=== PATIENT | female | born 1940 | race Caucasian/White ===

== ENCOUNTER 2017-06-29 17:29 | Emergency (ER) | payer OTHER, MEDICAID ==
[~2017-06-29] VITALS: Ht 154.9 cm; Wt 90.7 kg
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
[2017-06-29] MEDS ORDERED: oxyCODONE/APAP (5/325 MG) 1 UDTAB TABLET PO ONE (18:00)
[2017-06-29 18:04] LABS: BASOPHILS # (AUTO) 0.5 /CMM (0.0-0.2); BASOPHILS % (AUTO) 3.1 % (0.0-2.0); EOSINOPHILS # (AUTO) 0.2 /CMM (0.0-0.7); EOSINOPHILS % (AUTO) 0.9 % (0.0-6.0); HEMATOCRIT 42 % (33-45); LYMPHOCYTES # (AUTO) 1.8 /CMM (0.8-4.8); LYMPHOCYTES % (AUTO) 10.4 % (20.0-44.0); MEAN CORPUSCULAR HEMOGLOBIN 30 PG (26.0-33.0); MEAN CORPUSCULAR HGB CONC 34 g/dl (31.0-36.0); MEAN CORPUSCULAR VOLUME 89 fL (82-100); MONOCYTES # (AUTO) 1.2 /CMM (0.1-1.30); NEUTROPHILS # (AUTO) 13.4 /CMM (1.8-8.9); NEUTROPHILS % (AUTO) 78.6 % (43.0-81.0); PLATELET COUNT (AUTO) 237 /CMM (150-450); RDW COEFFICIENT OF VARIATION 13.4 (11.5-15.0); RED BLOOD CELL COUNT(AUTO) 4.67 MIL/uL (4.0-5.2); WHITE BLOOD COUNT (AUTO) 17.1 K/uL (4.3-11.0)
[2017-06-29] MEDS ORDERED: oxyCODONE/APAP (5/325 MG) 1 UDTAB TABLET ONE (18:05)
[2017-06-29 18:14] LABS: CALCIUM, SERUM 9.6 mg/dL (8.5-10.1); CARBON DIOXIDE 31 mmol/L (21-32); CHLORIDE 100 mmol/L (98-107); GLUCOSE 113 mg/dL (74-106); POTASSIUM 5.1 mmol/L (3.5-5.1); SODIUM SERUM 135 mmol/L (136-145); UREA NITROGEN, BLOOD 29 mg/dL (7-18)
[2017-06-29 18:17] LABS: INR 0.9 (0.87-1.13); PROTHROMBIN TIME 9.4 SECS (9.5-12.7)
[2017-06-29 18:20] LABS: ALANINE AMINOTRANSFERASE 28 U/L (12-78); ALBUMIN 4.1 g/dL (3.4-5.0); ALKALINE PHOSPHATASE 127 U/L (46-116); ASPARTATE AMINOTRANSFERASE 36 U/L (15-37); BILIRUBIN,TOTAL 0.5 mg/dL (0.2-1.0)
--- NOTE | 2017-06-29 18:32 | NUR ---
PT PLACED IN C-COLLAR PER Evelyn TSE FREIGHT TRAFFIC CONSULTANT AND PT TO HAVE CT SPINE. PT'S SON IS AT THE BEDSIDE.
[2017-06-29] MEDS ORDERED: IV NS 0.9% 1,000 ML BAG IV ONE (19:00)
--- NOTE | 2017-06-29 19:15 | NUR ---
PT RETURNED FROM CT.
--- NOTE | 2017-06-29 19:16 | NUR ---
REPORT GIVEN TO VALDEMAR BALLARD
[2017-06-29 19:20] LABS: APPEARANCE,URINE Clear (CLEAR); BILIRUBIN,URINE Negative (NEGATIVE); BLOOD, URINE Trace-lysed Ery/uL (NEGATIVE); COLOR,URINE Yellow (YELLOW); KETONES,URINE Negative (NEGATIVE); LEUKOCYTE ESTERASE ,URINE Negative (NEGATIVE); NITRITE, URINE Negative (NEGATIVE); PROTEIN,URINE Negative (NEGATIVE); UGLUCOSE Negative (NEGATIVE); UROBILINOGEN,URINE 0.2 EU/dL (0.2)
[2017-06-29 19:34] LABS: BACTERIA,URINE Rare /HPF (None Seen); SQUAMOUS EPITHELIAL CELL,UR Few /HPF (None Seen); WBC,URINE NONE SEEN /HPF (0-3)
[2017-06-29] MEDS ORDERED: IBUPROFEN 400 MG TABLET ONE (20:29)
[2017-06-29] MEDS ORDERED: IBUPROFEN 400 MG TABLET PO ONE (20:30)
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
--- NOTE | 2017-06-29 20:34 | NUR ---
IV removed. Catheter intact and site benign. Pressure and 4x4 applied to site. No bleeding noted.
--- NOTE | 2017-06-29 20:34 | NUR ---
Patient discharged to home in stable condition. Written and verbal after care instructions given. Patient verbalizes understanding of instruction.
--- NOTE | 2017-06-29 20:35 | NUR ---
dc home with her son and prescription pain medication
[2017-06-29 20:36] VITALS: BP 145/75
== END 2017-06-29 20:36 | disposition home or self-care (01) ==
LOC: ER 17:31
DX: S20.212A Contusion of left front wall of thorax, initial encounter (principal); S20.211A Contusion of right front wall of thorax, initial encounter; S70.12XA Contusion of left thigh, initial encounter; S70.11XA Contusion of right thigh, initial encounter; S19.9XXA Unspecified injury of neck, initial encounter; I10 Essential (primary) hypertension; R79.89 Other specified abnormal findings of blood chemistry; Z88.0 Allergy status to penicillin; Z88.2 Allergy status to sulfonamides; V49.49XA Driver injured in collision with other motor vehicles in traffic accident, initial encounter; Y93.89 Activity, other specified; Y92.89 Other specified places as the place of occurrence of the external cause; Y99.8 Other external cause status
CPT/HCPCS: 36415; 71250-TC; 72125-TC; 80048-TC; 80076-TC; 81000-TC; 85025-TC; 85730-TC; A4606; J7030; L0172; Z7610

== ENCOUNTER 2018-02-19 10:06 | Inpatient (IN) | payer MEDICAID, OTHER ==
[~2018-02-19] VITALS: Ht 162.6 cm; Wt 88.5 kg
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
--- NOTE | 2018-02-19 10:25 | NUR ---
PT TAKEN TO CT SCAN
[2018-02-19 10:27] LABS: BASOPHILS # (AUTO) 0.1 /CMM (0.0-0.2); BASOPHILS % (AUTO) 1.1 % (0.0-2.0); EOSINOPHILS % (AUTO) 0.7 % (0.0-6.0); HEMATOCRIT 37 % (33-45); HEMOGLOBIN 12.6 g/dL (11.5-14.8); LYMPHOCYTES # (AUTO) 1.1 /CMM (0.8-4.8); LYMPHOCYTES % (AUTO) 15.1 % (20.0-44.0); MEAN CORPUSCULAR HEMOGLOBIN 30 PG (26.0-33.0); MEAN CORPUSCULAR HGB CONC 34 g/dl (31.0-36.0); MEAN CORPUSCULAR VOLUME 87 fL (82-100); MONOCYTES # (AUTO) 0.8 /CMM (0.1-1.30); MONOCYTES % (AUTO) 11.4 % (2.0-12.0); NEUTROPHILS % (AUTO) 71.7 % (43.0-81.0); PLATELET COUNT (AUTO) 312 /CMM (150-450); RED BLOOD CELL COUNT(AUTO) 4.26 MIL/uL (4.0-5.2)
[2018-02-19 10:41] LABS: CALCIUM, SERUM 8.6 mg/dL (8.5-10.1); CARBON DIOXIDE 30 mmol/L (21-32); CREATININE 0.9 mg/dL (0.6-1.3); GLUCOSE 106 mg/dL (74-106); POTASSIUM 3.8 mmol/L (3.5-5.1); UREA NITROGEN, BLOOD 12 mg/dL (7-18)
[2018-02-19 10:42] LABS: CHLORIDE 76 mmol/L (98-107); SODIUM SERUM 113 mmol/L (136-145)
[2018-02-19 10:45] LABS: INR 0.99 (0.85-1.15)
[2018-02-19 10:48] LABS: TROPONIN I < 0.017 ng/mL (0.00-0.056)
[2018-02-19] MEDS ORDERED: IV NS 0.9% 500 ML IV ONE (11:00)
[2018-02-19] MEDS ORDERED: DOCU-141 PO (12:10)
[2018-02-19] MEDS ORDERED: RISP0.5T20 PO (12:10)
[2018-02-19] MEDS ORDERED: LISI-603 PO (12:10)
[2018-02-19] MEDS ORDERED: ASPI-1169 PO (12:10)
[2018-02-19] MEDS ORDERED: DIVA250T6 PO (12:10)
[2018-02-19] MEDS ORDERED: ATOR20TA PO (12:10)
[2018-02-19] MEDS ORDERED: LEVO88TA5 PO (12:10)
[2018-02-19] MEDS ORDERED: TRAZ-144 PO (12:10)
[2018-02-19] MEDS ORDERED: METO25TA6 PO (12:10)
[2018-02-19] MEDS ORDERED: SENN-167 PO (12:10)
[2018-02-19] MEDS ORDERED: RISP0.2515 PO (12:10)
--- NOTE | 2018-02-19 12:15 | NUR ---
CALLED [facility] WAS PAGED.
[2018-02-19] MEDS ORDERED: ACETAMINOPHEN ES 500 MG TABLET ONE (12:28)
[2018-02-19] MEDS ORDERED: ACETAMINOPHEN ES 500 MG TABLET PO ONE (12:30)
--- NOTE | 2018-02-19 13:29 | NUR ---
REPORT GIVEN TO SCAR ALDRICH FOR TELE 308-2.
[2018-02-19] MEDS ORDERED: ONDANSETRON HCL/PF 4 MG/2 ML VIAL IVP PRN (13:30)
[2018-02-19] MEDS ORDERED: hydrALAZINE HCL IV 20 MG VIAL IV PRN (13:30)
[2018-02-19] MEDS ORDERED: ZOLPIDEM TARTRATE 5 MG TABLET PO PRN (13:30)
[2018-02-19] MEDS ORDERED: HYDROCODONE/APAP 5/325MG 1 EACH TABLET PO PRN (13:30)
[2018-02-19] MEDS ORDERED: ACETAMINOPHEN 325 MG TABLET PO PRN (13:30)
[2018-02-19] MEDS ORDERED: IV NS 0.9% 1,000 ML IV PRN (13:30)
--- NOTE | 2018-02-19 13:50 | NUR ---
SUPERVISOR GELATIN PLANT OPENING NOTES PATIENT ARRIVED TO THE UNIT IN NO APPARENT DISTRESS. BEDSIDE RAILS ARE UPX2. BED IS LOCKED AND LOWERED. DEVI LIGHT IS WITHIN REACH. IV LINE IS INTACT AND PATENT. WILL CONTINUE TO MONITOR.
[2018-02-19] MEDS: ENOXAPARIN SODIUM 40 MG/0.4 ML DISP.SYRIN SQ SCH (15:08)
[2018-02-19] MEDS: risperiDONE 0.25 MG TABLET PO SCH (16:25)
[2018-02-19] MEDS: DOCUSATE SODIUM 100 MG CAPSULE PO SCH (16:27)
--- NOTE | 2018-02-19 17:23 | NUR ---
EXPLAINED TO THE PATIENT MULTIPLE TIMES WHY SHE IS IN THE HOSPITAL AND WHY WE INSERTED A VO CATHETER. PATIENT IS FORGETFUL AND ASKING THE SAME QUESTIONS AGAIN AND AGAIN. PATIENT IS AGITATED AND DEMANDS CONSTANT ATTENTION.
[2018-02-19 18:25] LABS: CARBON DIOXIDE 25 mmol/L (21-32); CREATININE 0.6 mg/dL (0.6-1.3); GLUCOSE 104 mg/dL (74-106); POTASSIUM 3.4 mmol/L (3.5-5.1); UREA NITROGEN, BLOOD 10 mg/dL (7-18)
[2018-02-19 18:29] LABS: CHLORIDE 78 mmol/L (98-107); SODIUM SERUM 111 mmol/L (136-145)
--- NOTE | 2018-02-19 18:30 | NUR ---
AUTO DESIGN CHECKER CLOSING NOTES PATIENT IS IN STABLE CONDITION. IN NO APPARENT DISTRESS. BEDSIDE RAILS ARE UPX2. BED IS LOCKED AND LOWERED. CALL LIGHT IS WITHIN REACH. IV LINE IS INTACT AND PATENT. WILL ENDORSE CARE TO REAR ADMIRAL NURSE FOR KASIA.
[2018-02-19] MEDS ORDERED: IV Sodium Chloride 3% 500 ML 500 ML IV ONE (19:00)
--- NOTE | 2018-02-19 19:00 | NUR ---
CUTTER OPERATOR INITIAL NOTES: RECEIVED PATIENT IN BED, ALERT, ORIENTED X 3. FORGETFUL, NEEDS CONSTANT REMINDERS. NOT IN ANY DISTRESS. NO COMPLAINTS OF PAIN OR DISCOMFORT OF THIS TIME. TELE MONITOR IN PLACE, SR 83. VO CATH IN PLACE, DRAINING WELL. PERIPHERAL IV PATENT, INFUSING AT 75ML/HR. CALL HORNER WITHIN REACH. BED IN LOW LOCKED POSITION WITH SIDERAILS X3. PATIENT IN STABLE CONDITION PER THE AM SHIFT RN
[2018-02-19 20:00] VITALS: BP 153/86
[2018-02-19 20:30] VITALS: BP 153/86
[2018-02-19] MEDS: ATORVASTATIN 10 MG TABLET PO SCH (21:24)
[2018-02-19] MEDS: SENNOSIDES 8.6 MG TABLET PO SCH (21:25)
[2018-02-19] MEDS: TRAZODONE 50 MG TABLET PO SCH (21:25)
[2018-02-19] MEDS: risperiDONE 1 MG TABLET PO SCH (21:26)
[2018-02-19] MEDS: METOPROLOL TARTRATE 25 MG TABLET PO SCH (21:26)
[2018-02-19 23:49] LABS: CALCIUM, SERUM 8.2 mg/dL (8.5-10.1); CARBON DIOXIDE 27 mmol/L (21-32); CREATININE 0.7 mg/dL (0.6-1.3); GLUCOSE 101 mg/dL (74-106); POTASSIUM 3.5 mmol/L (3.5-5.1); UREA NITROGEN, BLOOD 10 mg/dL (7-18)
[2018-02-19 23:53] LABS: CHLORIDE 80 mmol/L (98-107); SODIUM SERUM 112 mmol/L (136-145)
--- NOTE | 2018-02-19 23:55 | NUR ---
RN NURSING NOTES: RECEIVED A CALL FROM LAB OF [facility]; SODIUM [address] HUANG MADE AWARE
[2018-02-20] VITALS (7 sets, daily range): BP systolic 135–169; BP diastolic 56–88
--- NOTE | 2018-02-20 03:25 | NUR ---
RN NOTES: PATIENT WOKE UP, A LITTLE CONFUSED. TRYING TO TAKE OUT HER IV LINE AND CATHETER. REORIENTED AND REMINDED PATIENT THAT SHE IS IN THE HOSPITAL AND THAT SHE HAS PERIPHERAL IV AND VO CATH IN PLACE. PATIENT UNDERSTOOD AND TRIED TO GO BACK TO SLEEP
[2018-02-20 06:21] LABS: BASOPHILS % (AUTO) 0.2 % (0.0-2.0); EOSINOPHILS % (AUTO) 0.5 % (0.0-6.0); HEMATOCRIT 31 % (33-45); HEMOGLOBIN 10.9 g/dL (11.5-14.8); LYMPHOCYTES # (AUTO) 0.9 /CMM (0.8-4.8); LYMPHOCYTES % (AUTO) 17.5 % (20.0-44.0); MEAN CORPUSCULAR HEMOGLOBIN 32 PG (26.0-33.0); MEAN CORPUSCULAR HGB CONC 35 g/dl (31.0-36.0); MEAN CORPUSCULAR VOLUME 90 fL (82-100); MONOCYTES # (AUTO) 0.6 /CMM (0.1-1.30); NEUTROPHILS # (AUTO) 3.8 /CMM (1.8-8.9); NEUTROPHILS % (AUTO) 70.8 % (43.0-81.0); PLATELET COUNT (AUTO) 170 /CMM (150-450); RDW COEFFICIENT OF VARIATION 13.7 (11.5-15.0); RED BLOOD CELL COUNT(AUTO) 3.45 MIL/uL (4.0-5.2); WHITE BLOOD COUNT (AUTO) 5.3 K/uL (4.3-11.0)
--- NOTE | 2018-02-20 07:00 | NUR ---
WRAPPING MACHINE OPERATOR CLOSING NOTES: PATIENT IN BED, ALERT, ORIENTED X 4, FORGETFUL AND VERY NEEDY. NEEDS FREQUENT REMINDERS. PERIPHERAL IV INFUSING AT 25ML/HR. VO CATHETER IN PLACE, DRAINED PINK-TINGED YELLOW URINE, 1300ML. TELE MONITOR IN PLACE, SINUS RHYTHM 66. PATIENT MOVED HER BOWELS X 2, SMALL, LOOSE. CONTAINER FOR STOOL AT BEDSIDE. CALL HORNER WITHIN REACH. BED IN LOW, LOCKED POSITION. WILL ENDORSE KASIA TO AM SHIFT RN
[2018-02-20 07:14] LABS: CALCIUM, SERUM 8.9 mg/dL (8.5-10.1); CARBON DIOXIDE 25 mmol/L (21-32); CHLORIDE 83 mmol/L (98-107); CREATININE 0.6 mg/dL (0.6-1.3); GLUCOSE 93 mg/dL (74-106); MAGNESIUM 1.8 mg/dL (1.8-2.4); PHOSPHORUS 2.7 mg/dL (2.5-4.9); POTASSIUM 3.5 mmol/L (3.5-5.1); UREA NITROGEN, BLOOD 7 mg/dL (7-18)
[2018-02-20 07:45] LABS: CHOLESTEROL 194 mg/dL (<200); HDL CHOLESTEROL 89 mg/dL (40-60); LDL 88 mg/dL (0-99); TRIGLYCERIDES 50 mg/dL (30-150)
[2018-02-20 07:47] LABS: SODIUM SERUM 116 mmol/L (136-145)
--- NOTE | 2018-02-20 08:03 | NUR ---
RN OPENING NOTES PATIENT AWAKE ALERT AND VERBALLY RESPONSIVE, ABLE TO MAKE NEEDS KNOWN, FORGETFUL. RESPIRATIONS EVEN AND UNLABORED, DENIES ANY PAIN OR DISCOMFORT AT THIS TIME. IV ACCESS TO RIGHT WRIST PATENT AND INTACT NO REDNESS OR INFILTRATION NOTED WITH IVF NS 3% @25MLS/HR INFUSING. SAFETY MEASURES IN PLACE, KEPT CLEAN DRY AND COMFORTABLE CALL LIGHT WITHIN EASY REACH, WILL CONTINUE TO MONITOR
[2018-02-20] MEDS: ASPIRIN 81 MG TAB.CHEW PO SCH (08:55)
[2018-02-20] MEDS: METOPROLOL TARTRATE 25 MG TABLET PO SCH ×2 (08:55→21:25)
[2018-02-20] MEDS: risperiDONE 0.25 MG TABLET PO SCH ×2 (08:55→16:37)
[2018-02-20] MEDS: LISINOPRIL (20MG) 20 MG TABLET PO SCH (08:55)
[2018-02-20] MEDS: DOCUSATE SODIUM 100 MG CAPSULE PO SCH ×2 (08:56→16:37)
[2018-02-20] MEDS: LEVOTHYROXINE SODIUM 88 MCG TABLET PO SCH (08:59)
[2018-02-20] MEDS ORDERED: DIVALPROEX SODIUM 250 MG TABLET.DR PO SCH (09:00)
[2018-02-20] MEDS ORDERED: Z GUARD REMEDY 4 OZ OINT TP PRN (09:00)
[2018-02-20] MEDS: ENOXAPARIN SODIUM 40 MG/0.4 ML DISP.SYRIN SQ SCH (09:15)
[2018-02-20] MEDS ORDERED: IV Sodium Chloride 3% 500 ML 500 ML IV ONE ×2 (10:00→17:30)
[2018-02-20 12:28] LABS: CALCIUM, SERUM 8.3 mg/dL (8.5-10.1); CARBON DIOXIDE 26 mmol/L (21-32); CHLORIDE 88 mmol/L (98-107); CREATININE 0.6 mg/dL (0.6-1.3); GLUCOSE 103 mg/dL (74-106); POTASSIUM 3.4 mmol/L (3.5-5.1); SODIUM SERUM 121 mmol/L (136-145); UREA NITROGEN, BLOOD 8 mg/dL (7-18)
[2018-02-20 17:05] LABS: APPEARANCE,URINE SL CLOUDY (CLEAR); BILIRUBIN,URINE NEGATIVE (NEGATIVE); BLOOD, URINE 3+ Ery/uL (NEGATIVE); COLOR,URINE YELLOW (YELLOW); KETONES,URINE NEGATIVE (NEGATIVE); LEUKOCYTE ESTERASE ,URINE TRACE (NEGATIVE); NITRITE, URINE NEGATIVE (NEGATIVE); PROTEIN,URINE 2+ mg/dl (NEGATIVE); UGLUCOSE NEGATIVE (NEGATIVE); UROBILINOGEN,URINE 0.2 EU/dL (0.2)
[2018-02-20 17:36] LABS: BACTERIA,URINE Few /HPF (None Seen); RBC,URINE 51-80 /HPF (0-2); SQUAMOUS EPITHELIAL CELL,UR Few /HPF (None Seen); WBC,URINE 0-2 /HPF (0-3)
--- NOTE | 2018-02-20 19:19 | NUR ---
RN CLOSING NOTES PATIENT AWAKE ALERT AND VERBALLY RESPONSIVE, ABLE TO MAKE NEEDS KNOWN, FORGETFUL. RESPIRATIONS EVEN AND UNLABORED, DENIES ANY PAIN OR DISCOMFORT AT THIS TIME. IV ACCESS TO RIGHT WRIST PATENT AND INTACT NO REDNESS OR INFILTRATION NOTED WITH IVF NS 3% @30MLS/HR INFUSING. SAFETY MEASURES IN PLACE, KEPT CLEAN DRY AND COMFORTABLE CALL LIGHT WITHIN EASY REACH, ENDORSED TO NEXT SHIFT FOR CONTINUITY OF CARE
--- NOTE | 2018-02-20 19:45 | NUR ---
INTERNATIONAL RELATIONS PROFESSOR NOTES NOTED PATIENT PULLED OUT PREVIOUS IV SITE TO LEFT AC.
--- NOTE | 2018-02-20 19:45 | NUR ---
SILK BRUSHER OPENING NOTES RECEIVED PATIENT IN BED, AWAKE ALERT AND VERBALLY RESPONSIVE, ABLE TO MAKE NEEDS KNOWN, NOTED FORGETFUL,RESPIRATIONS EVEN AND UNLABORED WITH EQUAL RISE AND FALL OF CHEST, DENIES ANY PAIN OR DISCOMFORT AT THIS TIME ,NOTED WITH FACIAL DISCOLORATION. BED LOW, BED ALARM IN PLACE, SAFETY PRECAUTIONS IN PLACE, ORIENTED TO STAFF AND CALL LIGHT, CALL LIGHT KEPT WITHIN REACH. VO CATHETER INTACT AND DRAINING WELL , NOTED URINE YELLOW IN COLOR, ON COAL GASIFICATION TECHNICIAN SR 85. FLUIDS OFFERED TOLERATED, TOILETING OFFERED, NEW IV SITE PLACED TO LEFT HAND 24 GAUGE .INTACT AND PATENT, IVF RUNNING ORDERED.ALL NEEDS ATTENDED WILL CONTINUE TO MONITOR. REMAINS COMFORTABLE.
[2018-02-20] MEDS: SENNOSIDES 8.6 MG TABLET PO SCH (21:26)
[2018-02-20] MEDS: risperiDONE 1 MG TABLET PO SCH (21:26)
[2018-02-20] MEDS: ATORVASTATIN 10 MG TABLET PO SCH (21:26)
[2018-02-20] MEDS: TRAZODONE 50 MG TABLET PO SCH (21:32)
--- NOTE | 2018-02-20 21:34 | NUR ---
journeyman sheet metal worker notes patient refused trazodone. states " i cant take that, the doctor told me not too."
[2018-02-20 22:34] LABS: CALCIUM, SERUM 7.9 mg/dL (8.5-10.1); CARBON DIOXIDE 27 mmol/L (21-32); CHLORIDE 93 mmol/L (98-107); CREATININE 0.7 mg/dL (0.6-1.3); GLUCOSE 105 mg/dL (74-106); POTASSIUM 3.3 mmol/L (3.5-5.1); SODIUM SERUM 125 mmol/L (136-145); UREA NITROGEN, BLOOD 10 mg/dL (7-18)
[2018-02-21] VITALS (7 sets, daily range): BP systolic 124–150; BP diastolic 45–66
--- NOTE | 2018-02-21 00:28 | NUR ---
WATER GAS OPERATOR NOTES CALLED AND SPOKE TO REGARDING LAB LEVELS OUT OF RANGE , PER MD NO NEW ORDERS AT THIS TIME. POTASSIUM REPORTED RT 3.3
--- NOTE | 2018-02-21 02:00 | NUR ---
BLINDMAKER NOTES PATIENT PULLED OUT IV SITE. NOTED PULLED IV INTACT, NO BLEEDING , NO REDNESS , NO INFILTRATION PRESENT. PATIENT REFUSING TO HAVE IV REINSERTED, MADE AWAKE OF BENEFIT OF HAVING IV AND IVF ORDERED, REFUSED ,WILL CONTINUE TO MONITOR AND ATTEMPT AGAIN.
--- NOTE | 2018-02-21 03:00 | NUR ---
EXECUTIVE KITCHEN MANAGER NOTES ATTEMPTED TO REINSERT IV SITE, MADE PATIENT AWARE OF BENEFIT FOR IV USE AND IVF ORDERED PER MD. STATED." NO, I DONT WANT IT , IM NOT A GOAT" WILL CONTINUE TO ATTEMPT
--- NOTE | 2018-02-21 04:00 | NUR ---
RIDING SILKS CUSTODIAN NOTES MADE PATIENT AWARE OF PLAN OF CARE AND IMPORTANCE FOR IV ACCESS AND IVF. ASKED IF I CAN REINSERT IV. PATIENT REFUSED. STATED" NO I DONT WANT IT" WILL CONTINUE TO MONITOR AND TRY AGAIN.
--- NOTE | 2018-02-21 05:00 | NUR ---
rn first assistant notes patient refused iv insertion unable to provide ivf as ordered
--- NOTE | 2018-02-21 06:00 | NUR ---
red lead burner notes patient refused iv insertion notified md of multiple attempts awaiting response, will continue to monitor.
--- NOTE | 2018-02-21 06:30 | NUR ---
ELECTRIC MOTOR TESTER CLOSING NOTES PATIENT IN BED SLEEPING BUT EASILY AROUSABLE, RESPIRATIONS EVEN AND UNLABORED WITH EQUAL RISE AND FALL OF CHEST. DENIES ANY PAIN OR DISCOMFORT . VO CATHETER INTACT AND PATENT DRAINING WELL URINE YELLOW. NO IV SITE AT THIS TIME DUE TO PATIENT REFUSAL , CALLED MD THEODORE NOTIFY WILL CONTINUE TO ENDORSE TO NEXT SHIFT AT THIS TIME, CALL ALARM IN PLACE, LOW BED, BED LOCKED, CALL LIGHT KEPT WITHIN REACH,CALL LIGHT KEPT WITHIN REACH, ALL NEEDS ATTENDED , NO CHANGE IN LOC PRESENT, PATIENT LEFT COMFORTABLE. WILL CONTINUE TO MONITOR.
--- NOTE | 2018-02-21 06:34 | NUR ---
internet site designer notes unable to infuse iv 3% ivf due to patient noncompliance, pulling out iv sites and refusing iv reinsertion , despite multiple attempts. patient states " i dont need that".
[2018-02-21] MEDS: LEVOTHYROXINE SODIUM 88 MCG TABLET PO SCH (07:13)
--- NOTE | 2018-02-21 08:00 | NUR ---
Tele/RN - Assessment Patient in bed awake, A/O x 3, forgetful at times, denies pain, demanding and needy, no c/o SOB, no evidence of resp. distress noted, tolerating room air, tele shows SB 53. Patient non-compliant with care, refused peripheral IV to be inserted, stated "I don't want any of it." Explained to the patient the importance but still refused. Fall precautions maintained. Call light within reach and instructed to call for any assistance. All needs attended and met. Will continue with current medical management.
[2018-02-21] MEDS: ASPIRIN 81 MG TAB.CHEW PO SCH (08:24)
[2018-02-21] MEDS: LISINOPRIL (20MG) 20 MG TABLET PO SCH (08:25)
[2018-02-21] MEDS: risperiDONE 0.25 MG TABLET PO SCH ×2 (08:25→16:02)
[2018-02-21] MEDS: ENOXAPARIN SODIUM 40 MG/0.4 ML DISP.SYRIN SQ SCH (08:28)
[2018-02-21] MEDS: DOCUSATE SODIUM 100 MG CAPSULE PO SCH ×2 (08:28→16:02)
[2018-02-21] MEDS: METOPROLOL TARTRATE 25 MG TABLET PO SCH ×2 (08:29→16:19)
[2018-02-21 13:12] LABS: BASOPHILS % (AUTO) 0.7 % (0.0-2.0); EOSINOPHILS % (AUTO) 0.5 % (0.0-6.0); HEMATOCRIT 33 % (33-45); HEMOGLOBIN 11.1 g/dL (11.5-14.8); LYMPHOCYTES % (AUTO) 16.8 % (20.0-44.0); MEAN CORPUSCULAR HEMOGLOBIN 30 PG (26.0-33.0); MEAN CORPUSCULAR HGB CONC 34 g/dl (31.0-36.0); MEAN CORPUSCULAR VOLUME 89 fL (82-100); MONOCYTES # (AUTO) 0.6 /CMM (0.1-1.30); NEUTROPHILS # (AUTO) 4.4 /CMM (1.8-8.9); PLATELET COUNT (AUTO) 270 /CMM (150-450); RDW COEFFICIENT OF VARIATION 14.6 (11.5-15.0); RED BLOOD CELL COUNT(AUTO) 3.69 MIL/uL (4.0-5.2); WHITE BLOOD COUNT (AUTO) 6.1 K/uL (4.3-11.0)
[2018-02-21 13:24] LABS: CALCIUM, SERUM 8.5 mg/dL (8.5-10.1); CARBON DIOXIDE 27 mmol/L (21-32); CHLORIDE 100 mmol/L (98-107); CREATININE 0.7 mg/dL (0.6-1.3); GLUCOSE 104 mg/dL (74-106); MAGNESIUM 1.8 mg/dL (1.8-2.4); PHOSPHORUS 2.4 mg/dL (2.5-4.9); POTASSIUM 3.3 mmol/L (3.5-5.1); SODIUM SERUM 134 mmol/L (136-145); UREA NITROGEN, BLOOD 8 mg/dL (7-18)
[2018-02-21 13:34] LABS: URINE SODIUM, RANDOM 87 mmol/l (40-220)
[2018-02-21 13:44] LABS: OSMOLALITY,URINE 428 mOS/kg (340-1090)
[2018-02-21] MEDS ORDERED: K PHOS NEUTRAL 250 MG TABLET PO ONE (16:00)
--- NOTE | 2018-02-21 19:00 | NUR ---
Tele/RN - Discharge Patient discharged back to [facility] in stable condition, afebrile, denies any weakness or dizziness, no c/o pain, A/O x 4, appears to be very anxious, noted with ER=486/75. Patient stated "My blood pressure is always elevated and SBP 160 is normal for me." [facility] Yo Larkin spoke to Christal (medical staff) if she's comfortable taking the patient back, she agreed. Reviewed discharge instructions with patient and she verbalized full understanding of all teachings. Patient made aware that she needs to f/u with her PCP in 1 week, seek immediate medical attention for worsening symptoms, chest pain, shortness or breath, confusion, weakness, fatigue, dizziness, or any other emergent medical concern. All belongings with patient and she denies any missing items. Patient refused photos to be taken, no open wounds seen. Discharge papers signed and copy was given per protocol. Endorsed to ambulance crew accordingly.
== END 2018-02-21 19:10 | disposition home health service (06) | DRG 74 ==
LOC: ER 10:07 → TELE 12:38
PROVIDERS: ADMIT Nurse Practitioner Acute Care; ATTEND Nurse Practitioner Acute Care
DX: G90.8 Other disorders of autonomic nervous system (principal); E22.2 Syndrome of inappropriate secretion of antidiuretic hormone; W18.30XA Fall on same level, unspecified, initial encounter; Y92.129 Unspecified place in nursing home as the place of occurrence of the external cause; E86.0 Dehydration; E03.9 Hypothyroidism, unspecified; K21.9 Gastro-esophageal reflux disease without esophagitis; I10 Essential (primary) hypertension; Z88.0 Allergy status to penicillin; Z88.2 Allergy status to sulfonamides; Z79.82 Long term (current) use of aspirin; Z79.899 Other long term (current) drug therapy; S00.11XA Contusion of right eyelid and periocular area, initial encounter; E66.01 Morbid (severe) obesity due to excess calories; Z68.33 Body mass index [BMI] 33.0-33.9, adult; E78.5 Hyperlipidemia, unspecified; T42.6X5A Adverse effect of other antiepileptic and sedative-hypnotic drugs, initial encounter
CPT/HCPCS: 36415; 70450-TC; 71045-TC; 80048-TC; 80061-TC; 81000-TC; 83735-TC; 83935-TC; 84100-TC; 84295-TC; 84300-TC; 84443-TC; 84484-TC; 85025-TC; 85730-TC; 87081-TC; 93307-TC; A4606; J0360; J1650; J3490; J7030; J7040; Z7610

== ENCOUNTER 2018-02-22 17:44 | Inpatient (IN) | payer OTHER ==
[~2018-02-22] VITALS: Ht 167.6 cm; Wt 72.6 kg
[~2018-02-22 17:44] MED LIST: ASPI-1169 PO; ATOR20TA PO; DOCU-141 PO; LEVO88TA5 PO; LISI-603 PO; METO25TA6 PO; RISP0.2515 PO; RISP0.5T20 PO; SENN-167 PO; TRAZ-144 PO
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
--- NOTE | 2018-02-22 18:13 | NUR ---
BLOCKERS SKIVER AT BEDSIDE
--- NOTE | 2018-02-22 18:25 | NUR ---
NEW IV STARTED ON RIGHT WRIST, 20G. BLOOD DRAWN AND SENT TO LAB.
[2018-02-22 18:27] LABS: BASOPHILS # (AUTO) 0.1 /CMM (0.0-0.2); BASOPHILS % (AUTO) 1.1 % (0.0-2.0); EOSINOPHILS % (AUTO) 0.9 % (0.0-6.0); HEMATOCRIT 35 % (33-45); HEMOGLOBIN 12.1 g/dL (11.5-14.8); LYMPHOCYTES # (AUTO) 1.7 /CMM (0.8-4.8); LYMPHOCYTES % (AUTO) 14.8 % (20.0-44.0); MEAN CORPUSCULAR HEMOGLOBIN 30 PG (26.0-33.0); MEAN CORPUSCULAR HGB CONC 34 g/dl (31.0-36.0); MEAN CORPUSCULAR VOLUME 87 fL (82-100); MONOCYTES # (AUTO) 0.9 /CMM (0.1-1.30); MONOCYTES % (AUTO) 7.9 % (2.0-12.0); NEUTROPHILS # (AUTO) 8.7 /CMM (1.8-8.9); NEUTROPHILS % (AUTO) 75.3 % (43.0-81.0); PLATELET COUNT (AUTO) 258 /CMM (150-450); RDW COEFFICIENT OF VARIATION 13.8 (11.5-15.0); RED BLOOD CELL COUNT(AUTO) 4.06 MIL/uL (4.0-5.2); WHITE BLOOD COUNT (AUTO) 11.5 K/uL (4.3-11.0)
[2018-02-22] MEDS ORDERED: IV NS 0.9% 500 ML BAG IV ONE (18:30)
[2018-02-22 18:41] LABS: CALCIUM, SERUM 9.2 mg/dL (8.5-10.1); CARBON DIOXIDE 27 mmol/L (21-32); CHLORIDE 95 mmol/L (98-107); CREATININE 0.9 mg/dL (0.6-1.3); GLUCOSE 94 mg/dL (74-106); POTASSIUM 3.7 mmol/L (3.5-5.1); SODIUM SERUM 129 mmol/L (136-145); UREA NITROGEN, BLOOD 15 mg/dL (7-18)
[2018-02-22 18:50] LABS: TROPONIN I < 0.017 ng/mL (0.00-0.056)
--- NOTE | 2018-02-22 19:13 | NUR ---
URINE OBTAINED AND SENT TO LAB.
[2018-02-22 19:16] LABS: APPEARANCE,URINE Clear (CLEAR); BILIRUBIN,URINE Negative (NEGATIVE); BLOOD, URINE Trace-lysed Ery/uL (NEGATIVE); COLOR,URINE Yellow (YELLOW); KETONES,URINE Negative (NEGATIVE); LEUKOCYTE ESTERASE ,URINE Trace (NEGATIVE); NITRITE, URINE Negative (NEGATIVE); PH,URINE 6.5 (5.0-8.0); PROTEIN,URINE Negative (NEGATIVE); UGLUCOSE Negative (NEGATIVE); UROBILINOGEN,URINE 0.2 EU/dL (0.2)
--- NOTE | 2018-02-22 19:20 | NUR ---
REPORT GIVEN TO AMANDA ALDRICH FOR KASIA.
[2018-02-22 19:34] LABS: BACTERIA,URINE 1+ /HPF (None Seen); SQUAMOUS EPITHELIAL CELL,UR Few /HPF (None Seen)
--- NOTE | 2018-02-22 19:54 | NUR ---
PT PLACED ON BEDPAN. VSS. NO S/S OF DISTRESS NOTED. PT COMFORT AND SAFETY MEASURES IN PLACE.
--- NOTE | 2018-02-22 20:02 | NUR ---
BED 310-1
--- NOTE | 2018-02-22 20:28 | NUR ---
REPORT GIVEN TO TIKA ERNST FOR KASIA
[2018-02-22 20:30] VITALS: BP 182/81
[2018-02-22] MEDS ORDERED: CEFTRIAXONE 1GM BAG (ER ONLY) 1 GM/50 ML PIGGYBACK IV ONE (20:30)
--- NOTE | 2018-02-22 20:30 | NUR ---
RN MS RECEIVING NOTES RECEIVED PATIENT FROM ER VIA [place]. ALERT AND ORIENTED X3, VERBALLY RESPONSIVE, ABLE TO MAKE NEEDS KNOWN. BREATHING EVEN AND UNLABORED. NO SOB NOTED. NO APPARENT DISTRESS. IV LINE ON RIGHT WRIST #20 INTACT AND PATENT. SKIN WARM AND DRY TO TOUCH. ALL NEEDS ATTENDED TO. KEPT COMFORTABLE. CALL LIGHT WITHIN REACH. BED ON LOWEST LOCKED POSITION. WILL CONTINUE TO MONITOR.
[2018-02-22] MEDS ORDERED: CEFTRIAXONE 1GM BAG (ER ONLY) 50 ML IV ONE (20:31)
[2018-02-22] MEDS ORDERED: Z GUARD REMEDY 2 OZ OINT TP PRN (21:00)
[2018-02-22] MEDS ORDERED: HYDROCODONE/APAP 5/325MG 1 EACH TABLET PO PRN (21:00)
[2018-02-22] MEDS ORDERED: MAG HYDROX/AL HYDROX/SIMETH 30 ML UDC PO PRN (21:00)
[2018-02-22] MEDS ORDERED: MAGNESIUM HYDROXIDE 30 ML UDC PO PRN (21:00)
[2018-02-22] MEDS ORDERED: ACETAMINOPHEN 325 MG TABLET PO PRN (21:00)
[2018-02-22] MEDS ORDERED: ZOLPIDEM TARTRATE 5 MG TABLET PO PRN (21:00)
[2018-02-22] MEDS ORDERED: ONDANSETRON HCL/PF 4 MG/2 ML VIAL IVP PRN (21:00)
[2018-02-22] MEDS: IV D5/0.45 NACL 1,000 ML IV PRN (22:03)
[2018-02-22] MEDS ORDERED: Z GUARD REMEDY 4 OZ OINT TP ONE (22:32)
[2018-02-22 23:30] VITALS: BP 135/58
[2018-02-23] VITALS: BP 135/58
--- NOTE | 2018-02-23 06:31 | NUR ---
RN MS CLOSING NOTES PATIENT IN BED AWAKE, ALERT AND ORIENTED X3. VERBALLY RESPONSIVE, ABLE TO MAKE NEEDS KNOWN. BREATHING EVEN AND UNLABORED. NO SOB NOTED. NO APPARENT DISTRESS. IV LINE ON RIGHT WRIST #20 INTACT AND PATENT. CURRENTLY INFUSING D5 1/2 NS @ 75ML/HR. KEPT CLEAN, DRY, AND COMFORTABLE. ALL NEEDS ATTENDED TO. CALL LIGHT WITHIN REACH. BED ON LOWEST LOCKED POSITION. WILL ENDORSE TO ONCOMING RN FOR CONTINUITY OF CARE.
[2018-02-23 06:32] LABS: BASOPHILS % (AUTO) 0.2 % (0.0-2.0); EOSINOPHILS % (AUTO) 1.7 % (0.0-6.0); HEMATOCRIT 31 % (33-45); HEMOGLOBIN 10.4 g/dL (11.5-14.8); LYMPHOCYTES # (AUTO) 1.8 /CMM (0.8-4.8); LYMPHOCYTES % (AUTO) 15.3 % (20.0-44.0); MEAN CORPUSCULAR HEMOGLOBIN 31 PG (26.0-33.0); MEAN CORPUSCULAR HGB CONC 34 g/dl (31.0-36.0); MEAN CORPUSCULAR VOLUME 90 fL (82-100); MONOCYTES # (AUTO) 0.9 /CMM (0.1-1.30); MONOCYTES % (AUTO) 7.5 % (2.0-12.0); NEUTROPHILS # (AUTO) 8.7 /CMM (1.8-8.9); NEUTROPHILS % (AUTO) 75.3 % (43.0-81.0); PLATELET COUNT (AUTO) 249 /CMM (150-450); RDW COEFFICIENT OF VARIATION 14.5 (11.5-15.0); RED BLOOD CELL COUNT(AUTO) 3.39 MIL/uL (4.0-5.2); WHITE BLOOD COUNT (AUTO) 11.6 K/uL (4.3-11.0)
[2018-02-23 07:01] LABS: ALANINE AMINOTRANSFERASE 31 U/L (12-78); ALBUMIN 2.8 g/dL (3.4-5.0); ALKALINE PHOSPHATASE 83 U/L (46-116); ASPARTATE AMINOTRANSFERASE 20 U/L (15-37); B-TYPE NATRIURETIC PEPTIDE 198 PG/ML (0-125); BILIRUBIN,TOTAL 0.3 mg/dL (0.2-1.0); CALCIUM, SERUM 7.9 mg/dL (8.5-10.1); CARBON DIOXIDE 28 mmol/L (21-32); CHLORIDE 95 mmol/L (98-107); CREATININE 1.1 mg/dL (0.6-1.3); MAGNESIUM 1.5 mg/dL (1.8-2.4); PHOSPHORUS 2.6 mg/dL (2.5-4.9); SODIUM SERUM 130 mmol/L (136-145); TOTAL PROTEIN, SERUM 5.8 g/dL (6.4-8.2); UREA NITROGEN, BLOOD 15 mg/dL (7-18)
[2018-02-23 07:04] LABS: CHOLESTEROL 160 mg/dL (<200); GLUCOSE 381 mg/dL (74-106); HDL CHOLESTEROL 76 mg/dL (40-60); LDL 68 mg/dL (0-99); POTASSIUM 2.8 mmol/L (3.5-5.1); THYROID STIMULATING HORMONE 5.055 uIU/mL (0.358-3.74); TRIGLYCERIDES 32 mg/dL (30-150)
--- NOTE | 2018-02-23 07:35 | NUR ---
RN NOTES: PATIENT RESTING IN BED. NONLABORED BREATHING NOTED ON ROOM AIR. DENYING CHEST PAIN, DENYING DIZZINESS. NO FACIAL GRIMACING NOTED. IV SITE ON RIGHT HAND 20 PATENT AND INTACT. BED IN LOWEST LOCKED POSITION.CALL LIGHT WITHIN REACH. BED ALARM ON CALLED LAB FOR CMP REDRAW- PER ORDERS
[2018-02-23 08:00] VITALS: BP 166/75
[2018-02-23 08:15] LABS: CALCIUM, SERUM 8.9 mg/dL (8.5-10.1); CARBON DIOXIDE 29 mmol/L (21-32); CHLORIDE 96 mmol/L (98-107); CREATININE 1.1 mg/dL (0.6-1.3); GLUCOSE 101 mg/dL (74-106); POTASSIUM 3.2 mmol/L (3.5-5.1); SODIUM SERUM 132 mmol/L (136-145); UREA NITROGEN, BLOOD 14 mg/dL (7-18)
[2018-02-23 08:21] LABS: ALANINE AMINOTRANSFERASE 36 U/L (12-78); ALBUMIN 3.3 g/dL (3.4-5.0); ALKALINE PHOSPHATASE 99 U/L (46-116); ASPARTATE AMINOTRANSFERASE 21 U/L (15-37); BILIRUBIN,TOTAL 0.4 mg/dL (0.2-1.0); TOTAL PROTEIN, SERUM 6.8 g/dL (6.4-8.2)
--- NOTE | 2018-02-23 09:59 | NUR ---
WOUND CARE CONSULT: PT PRESENTS WITH BRUISING ON FACE AND AROUND EYES. ALL SKIN PROTECTION RECOMMENDATIONS DISCUSSED WITH NURSING STAFF. WILL SEE PRN. HOGAN IN AGREEMENT WITH PLAN OF CARE. CURRENT ROSIO SCORE IS 16. Addendum: 02/23/18 at 1001 by INOCENCIO ROACH WNDNU Amended: Links added.
[2018-02-23] MEDS ORDERED: POTASSIUM CL. PREMIX PERIPHER. 50 ML IV SCH (10:30)
[2018-02-23] MEDS ORDERED: Magnesium 1GM/D5W 100ML PREMIX 100 ML IV SCH (11:30)
--- NOTE | 2018-02-23 11:31 | NUR ---
PER SONIA MARSH DIRECTOR OF STRATEGIC INITIATIVES, OK TO SWITCH TO PO POTASSIUM REPLACEMENT- SAME DOSAGE. VERBAL READBACK DONE
[2018-02-23] MEDS ORDERED: POTASSIUM CHLORIDE 20 MEQ POWDER PACKET PO ONE (12:00)
[2018-02-23] MEDS ORDERED: POTASSIUM CHLORIDE 20 MEQ POWDER PACKET PO SCH (12:00)
--- NOTE | 2018-02-23 12:00 | NUR ---
PHARMACY VERIFIED WITH BAUTISTA FROM PHARMACY. OK TO SWITCH IV POTASSIUM TO PO. 30 MEQ FOR CURRENT POTASSIUM LEVEL OF 3.2
--- NOTE | 2018-02-23 12:36 | NUR ---
REDRAW LABS ORDERED PER ORDERS
--- NOTE | 2018-02-23 12:45 | NUR ---
MAGNESIUM REDRAW INDICATING THAT MAGNESIUM LEVELS WNL. SPOKE TO MARISSA FROM PHARMACY, OK TO DISCONTINUE MAGNESIUM REPLACEMENT
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
[2018-02-23 16:00] VITALS: BP 148/71
--- NOTE | 2018-02-23 16:00 | NUR ---
PER SONIA MARSH ,NICK, OK TO UTILIZE STRAIGHT CATHETER TO OBTAIN A URINE CULTURE
[2018-02-23] MEDS: LEVOFLOXACIN (500MG) 500 MG TABLET PO SCH (16:28)
[2018-02-23] MEDS: IV D5/0.45 NACL 1,000 ML IV PRN (16:31)
[2018-02-23] MEDS: risperiDONE 0.25 MG TABLET PO SCH (17:51)
[2018-02-23] MEDS: DOCUSATE SODIUM 100 MG CAPSULE PO SCH (17:51)
--- NOTE | 2018-02-23 19:15 | NUR ---
RN CLOSING NOTES: PATIENT RESTING IN BED. NONLABORED BREATHING NOTED ON ROOM AIR. DENYING CHEST PAIN, DENYING DIZZINESS. NO FACIAL GRIMACING NOTED. IV SITE ON RIGHT HAND 20 PATENT AND INTACT WITH FLUIDS RUNNING PER ORDERS. BED IN LOWEST LOCKED POSITION.CALL LIGHT WITHIN REACH. PATIENT REFUSING TO URINATE IN BED MELARA AND REFUSING TO HAVE STRAIGHT CATHETER INSERTED TO COLLECT URINE CULTURE. PATIENT EDUCATED ON IMPORTANCE OF OBTAINING URINE CULTURE. ENDORSED TO VALDEMAR BUCHANAN
--- NOTE | 2018-02-23 19:30 | NUR ---
MSRN FULLY AWAKE, ASSESED PER FLOW SHEET. NO SOB. MARKED BRUISES PERIORBITAL SHYANN RIGHT FOREHEAD S/P RECENT FALL. PLAN OF CARE DISCUSSED TO PATIENT, MEDICATION REGIMEN DISCUSSED APPEARS TO UNDERSTAND. KEPT COMFORTABLE, ALL NEEDS ATTENDED. TO CONTINUE.
--- NOTE | 2018-02-23 19:55 | NUR ---
MSRN VERBALIZES MISSING SANDALS , NONE DOCUMENTED ON BELONGINGS LIST. MULTIPLE NEEDS, ALL ATTENDED. REMINDED MEDS TO BE TAKEN TONIGHT, STATED HAS FORGOTTEN. FREQ REMINDED MEDICATION REGIMEN.
[2018-02-23 20:00] VITALS: BP 178/71
--- NOTE | 2018-02-23 20:35 | NUR ---
MSRN DUE MEDS ADMINISTERED, NO DIFFICULTY SWALLOWING. V/S STABLE FOR NOW.
[2018-02-23] MEDS: LISINOPRIL (20MG) 20 MG TABLET PO SCH (20:36)
[2018-02-23] MEDS: METOPROLOL TARTRATE 25 MG TABLET PO SCH (20:37)
[2018-02-23] MEDS ORDERED: ATORVASTATIN 10 MG TABLET PO SCH (22:00)
[2018-02-23] MEDS ORDERED: SENNOSIDES 8.6 MG TABLET PO SCH (22:00)
[2018-02-23] MEDS ORDERED: TRAZODONE 50 MG TABLET PO SCH (22:00)
--- NOTE | 2018-02-23 22:00 | NUR ---
MSRN OTHER DUE MEDS ADMINISTERED. CONCERNS BROUGHT UP REGARDING WANTING A DIFFERENT ASSISTED LIVING UPON DISCHARGE. REFUSED TO GO BACK TO [facility]. WILL ADDRESS TO INCOMING RN IN AM FOR CASE MGT. ALL NEEDS ATTENDED.
--- NOTE | 2018-02-23 23:00 | NUR ---
MSRN TRIED TO HAVE BM TWICE, NO BM. REFUSED MOM, STATED WILL TAKE PRUNE JUICE INSTEAD IN AM. STATED WILL TRY TO SLEEP THIS TIME. CLOSELY WATCHED. SAFETY PRECAUTIONS INSTRUCTED, REMINDED TO CALL STAFF FOR ANY ASSISTANCE OR DISCOMFORTS. CALL LIGHT WITHIN REACH.
--- NOTE | 2018-02-24 00:38 | NUR ---
MSRN SLEEPING APPEARS COMFORTABLE. CLOSELY WATCHED.
[2018-02-24] MEDS: IV D5/0.45 NACL 1,000 ML IV PRN (06:32)
[2018-02-24 07:03] LABS: BASOPHILS # (AUTO) 0.1 /CMM (0.0-0.2); BASOPHILS % (AUTO) 0.9 % (0.0-2.0); EOSINOPHILS % (AUTO) 2.3 % (0.0-6.0); HEMATOCRIT 38 % (33-45); HEMOGLOBIN 12.6 g/dL (11.5-14.8); LYMPHOCYTES % (AUTO) 20.2 % (20.0-44.0); MEAN CORPUSCULAR HEMOGLOBIN 30 PG (26.0-33.0); MEAN CORPUSCULAR HGB CONC 34 g/dl (31.0-36.0); MEAN CORPUSCULAR VOLUME 90 fL (82-100); MONOCYTES # (AUTO) 0.7 /CMM (0.1-1.30); MONOCYTES % (AUTO) 6.8 % (2.0-12.0); NEUTROPHILS # (AUTO) 7.1 /CMM (1.8-8.9); NEUTROPHILS % (AUTO) 69.8 % (43.0-81.0); RDW COEFFICIENT OF VARIATION 14.5 (11.5-15.0); WHITE BLOOD COUNT (AUTO) 10.1 K/uL (4.3-11.0)
--- NOTE | 2018-02-24 07:10 | NUR ---
MS rn initial notes Received patient in bed, awake, head of bed elevated, no SOB or distress noted, on room air and tolerated well. IV intact and patent with IVF infusing well. Patient is alert and oriented x 3, forgetful. Bruises on the face more on the left side. No complaint of pain or discomfort. Call light with in patient reach, will continue to monitor accordingly.
[2018-02-24 07:20] LABS: CALCIUM, SERUM 9.5 mg/dL (8.5-10.1); CARBON DIOXIDE 28 mmol/L (21-32); CHLORIDE 97 mmol/L (98-107); CREATININE 0.9 mg/dL (0.6-1.3); GLUCOSE 119 mg/dL (74-106); MAGNESIUM 1.7 mg/dL (1.8-2.4); PHOSPHORUS 2.9 mg/dL (2.5-4.9); POTASSIUM 3.5 mmol/L (3.5-5.1); SODIUM SERUM 134 mmol/L (136-145); UREA NITROGEN, BLOOD 9 mg/dL (7-18)
[2018-02-24] MEDS ORDERED: LEVOTHYROXINE SODIUM 88 MCG TABLET PO SCH (07:30)
--- NOTE | 2018-02-24 07:37 | NUR ---
MS RN CLOSING NOTES: PATIENT SLEPT WELL @ NIGHT & RESTING IN BED NOW. NONLABORED BREATHING NOTED ON ROOM AIR. DENYING CHEST PAIN & DIZZINESS. NO FACIAL GRIMACING NOTED. IV ACCESS TO LFA, INTACT PATENT, IVF RUNNING ORDERED. BED IN LOWEST LOCKED POSITION.CALL LIGHT WITHIN REACH. PATIENT REFUSING TO URINATE IN BED MELARA AND REFUSING TO HAVE STRAIGHT CATHETER INSERTED TO COLLECT URINE CULTURE. PATIENT EDUCATED ON IMPORTANCE OF OBTAINING URINE CULTURE, BUT STILL REFUSED. AM RN INFORMED. ENDORSED REPORT TO AM RN
[2018-02-24 08:00] VITALS: BP 149/93
[2018-02-24] MEDS: DOCUSATE SODIUM 100 MG CAPSULE PO SCH ×2 (08:14→16:17)
[2018-02-24] MEDS: risperiDONE 0.25 MG TABLET PO SCH ×2 (08:15→16:17)
[2018-02-24] MEDS: LISINOPRIL (20MG) 20 MG TABLET PO SCH (08:15)
[2018-02-24 08:16] VITALS: BP 149/93
[2018-02-24] MEDS: METOPROLOL TARTRATE 25 MG TABLET PO SCH (08:16)
[2018-02-24] MEDS ORDERED: ASPIRIN 81 MG TAB.CHEW PO SCH (09:00)
[2018-02-24 09:01] LABS: PLATELET COUNT (AUTO) 229 /CMM (150-450)
[2018-02-24] MEDS: Magnesium 1GM/D5W 100ML PREMIX 100 ML IV SCH ×2 (09:56→11:11)
[2018-02-24] MEDS ORDERED: IV D5/ 0.9% NACL 1,000 ML IV PRN (12:30)
[2018-02-24] MEDS: LEVOFLOXACIN (500MG) 500 MG TABLET PO SCH (16:17)
--- NOTE | 2018-02-24 17:00 | NUR ---
ms blast furnace auxiliaries supervisor notes Discharge instructions given to patient and able to understand instructions. Signed discharge paper and belonging list, no items missing. Discontinued IV access and pressured applied to prevent bleeding. Patient is alert and oriented x 3, forgetful at times. Patient is going to [facility]. Ambulance came to orange picker machine operator the patient. No complaint of pain or discomfort noted. Flu is out of season. PNA vaccine refused. Explained the risk and benefits x 3 and still refused. Patient left via gurney accompanied by 2 EMT's in stable condition. Skin assessment done and pictures taken and filed in the chart. MD and charge nurse made aware. Vital signs checked and recorded.
== END 2018-02-24 16:51 | DRG 640 ==
LOC: ER 17:45 → TELE 20:11 → MED 21:46
PROVIDERS: ADMIT Internal Medicine; ATTEND Internal Medicine
DX: E87.1 Hypo-osmolality and hyponatremia (principal); N39.0 Urinary tract infection, site not specified; G93.40 Encephalopathy, unspecified; K21.9 Gastro-esophageal reflux disease without esophagitis; I10 Essential (primary) hypertension; F25.9 Schizoaffective disorder, unspecified; R26.9 Unspecified abnormalities of gait and mobility; M79.2 Neuralgia and neuritis, unspecified; E03.9 Hypothyroidism, unspecified; E78.5 Hyperlipidemia, unspecified; M10.9 Gout, unspecified; Z88.0 Allergy status to penicillin; Z88.2 Allergy status to sulfonamides; Z79.82 Long term (current) use of aspirin; Z79.899 Other long term (current) drug therapy; M19.90 Unspecified osteoarthritis, unspecified site; B96.89 Other specified bacterial agents as the cause of diseases classified elsewhere; G44.309 Post-traumatic headache, unspecified, not intractable; S00.11XA Contusion of right eyelid and periocular area, initial encounter; T42.6X5A Adverse effect of other antiepileptic and sedative-hypnotic drugs, initial encounter; S00.12XA Contusion of left eyelid and periocular area, initial encounter; Y92.198 Other place in other specified residential institution as the place of occurrence of the external cause; W19.XXXA Unspecified fall, initial encounter; E87.6 Hypokalemia
CPT/HCPCS: 36415; 70450-TC; 71045-TC; 80048-TC; 80053-TC; 80061-TC; 81000-TC; 82746; 82962-TC; 83735-TC; 83880; 84100-TC; 84439-TC; 84443-TC; 84484-TC; 85025-TC; 87081-TC; A4606; J0696; J3475; J3480; J3490; J7040; J7042; Z7610

== ENCOUNTER 2019-09-29 00:50 | Emergency (ER) | payer OTHER ==
[~2019-09-29] VITALS: Ht 152.4 cm; Wt 77.1 kg
[~2019-09-29 00:50] MED LIST changes: -SENN-167 PO; +SENN-261 PO; -TRAZ-144 PO; +TRAZ-182 PO
--- NOTE | 2019-09-29 01:15 | NUR ---
TATO FROM [facility]. TO ER BED 3. AAOX3. NO RESP DISTRESS, BREATHING EVEN AND UNLABORED. C/O LEFT UPPER INNER THIGH AND L INGUINAL PAIN X 1 WEEK. PT DENIES ANY TRAUMA. NO REPORTED FALL. PT RATES HER PAIN 5/10 WITH SENSATION OF ACHING. MD WAS AT BEDSIDE FOR EVAL. AWAITING FOR ORDERS
--- NOTE | 2019-09-29 02:39 | NUR ---
CALLED [facility] FOR TRANSPORTATION. ETA [id number]. TRIP #[id number]
[2019-09-29] MEDS ORDERED: IBUPROFEN 400 MG TABLET ONE (03:14)
--- NOTE | 2019-09-29 03:21 | NUR ---
REPORT GIVEN TO [facility].
--- NOTE | 2019-09-29 03:22 | NUR ---
CLAU AWARE THAT BP IS 181/82 AND NOTIFIED THAT MD IS AWARE. AND ORDERED TO GIVE PRN CLONIDINE ONCE SHE GETS TO FACILITY
[2019-09-29] MEDS ORDERED: IBUPROFEN 400 MG TABLET PO ONE (03:30)
--- NOTE | 2019-09-29 03:31 | NUR ---
PT LEFT ON GURNEY W/ 2 AMBULANZ STAFF REPORT GIVEN. PT IS STABLE FOR TRANSPORT.
[2019-09-29 04:17] VITALS: BP 181/82
== END 2019-09-29 03:31 | disposition home or self-care (01) ==
LOC: ER 00:53
DX: M79.605 Pain in left leg (principal); I10 Essential (primary) hypertension; K21.9 Gastro-esophageal reflux disease without esophagitis; F25.9 Schizoaffective disorder, unspecified; F31.9 Bipolar disorder, unspecified; E78.5 Hyperlipidemia, unspecified; M10.9 Gout, unspecified; E03.9 Hypothyroidism, unspecified; Z88.0 Allergy status to penicillin; Z79.899 Other long term (current) drug therapy; Z79.82 Long term (current) use of aspirin
CPT/HCPCS: 93971-TC